=== PATIENT | female | born 1975 | race Caucasian/White ===

== ENCOUNTER 2020-02-01 00:46 | Emergency (ER) | payer OTHER ==
[~2020-02-01] VITALS: Ht 154.9 cm; Wt 63.5 kg
[2020-02-01 00:57] VITALS: BP 144/94
[2020-02-01] MEDS ORDERED: HYDROXYZINE HCL25 M2 PO (02:16)
[2020-02-01] MEDS ORDERED: AMOXICILLIN 50500 M1 PO (02:16)
[2020-02-01] MEDS ORDERED: MEDROLDOSEPACK PO (02:16)
--- NOTE | 2020-02-02 08:54 | EKG ---
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1975 Requested By: Nya Neville Order Number: [id number] MD: Harish Obando Measurements Intervals [place] Rate: 66 P: 128 MN: 158 QRS: -23 QRSD: 95 T: 140 QT: 415 QTc: 435 Interpretive Statements Sinus rhythm Probable left atrial enlargement Low voltage, extremity and precordial leads Abnormal T, consider ischemia, lateral leads No previous ECG available for comparison Electronically Signed On 02-02-2020 8:53:54 CDT by Harish Obando [email or web address] <ELECTRONICALLY SIGNED> By: Harish Obando MD, FACC 02/02/20 0853 0135 0135 Harish Obando MD, [facility] /EPI
== END 2020-02-01 02:22 | disposition home or self-care (01) ==
LOC: M.ERS 00:46
DX: F41.9 Anxiety disorder, unspecified (principal); R42 Dizziness and giddiness; F17.210 Nicotine dependence, cigarettes, uncomplicated; Z98.890 Other specified postprocedural states

== ENCOUNTER 2020-02-27 16:10 | Emergency (ER) | payer OTHER ==
[~2020-02-27] VITALS: Ht 154.9 cm; Wt 63.5 kg
[~2020-02-27 16:10] MED LIST: AMOXICILLIN 50500 M1 PO; HYDROXYZINE HCL25 M2 PO; MEDROLDOSEPACK PO
[2020-02-27] MEDS ORDERED: BUSPIRONE HCL7.5 MG PO (16:20)
[2020-02-27] MEDS ORDERED: SERTRALINE HCL50 MG PO (16:21)
[2020-02-27 17:16] LABS: ABSOLUTE EOSINOPHILS 0.2 thou/uL (0.0-0.7); ABSOLUTE LYMPHOCYTES 1.1 thou/uL (0.8-5.3); ABSOLUTE MONOCYTES 0.4 thou/uL (0.0-1.2); ABSOLUTE NEUTROPHILS 3.4 thou/uL (1.6-8.1); BASOPHILS 0.8 %; EOSINOPHILS 3.5 %; HEMATOCRIT 39.8 % (37.0-47.0); HEMOGLOBIN 13.6 gm/dL (12.0-15.0); LYMPHOCYTES 21.3 %; MCH 30.2 pg (26.0-34.0); MCHC 34.3 g/dL (28.0-37.0); MCV 88.2 fL (80.0-100.0); MONOCYTES 6.9 %; MPV 8.8 fl. (7.2-11.1); NUCLEATED RBCS 0 /100WBC; PLATELET COUNT* 264 thou/uL (150-400); POLYS 67.5 %; RBC 4.51 mil/uL (4.20-5.00); RDW-CV 13.4 % (10.5-14.5); WBC 5.1 thou/uL (4.0-11.0)
--- NOTE | 2020-02-27 17:17 | EKG ---
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[facility] : 1975 Requested By: Mario Feliz Order Number: [id number] MD: Quinn Vance Measurements Intervals [place] Rate: 97 P: 63 ID: 156 QRS: 30 QRSD: 77 T: 58 QT: 338 QTc: 430 Interpretive Statements Sinus rhythm Probable left atrial enlargement Compared to ECG 02/01/2020 01:35:04 T-wave abnormality no longer present Possible ischemia no longer present Electronically Signed On 02-27-2020 17:17:17 CDT by Quinn Vance [email or web address] <ELECTRONICALLY SIGNED> By: Quinn Vance MD, [facility] 02/27/20 1717 1617 16 Quinn Vance MD, [facility] /EPI
[2020-02-27 17:21] LABS: CALCIUM 9.2 mg/dL (8.5-10.1); CREATININE 0.8 mg/dL (0.6-1.3); POTASSIUM 4.1 mmol/L (3.5-5.1)
[2020-02-27 17:26] LABS: ALBUMIN 4.1 g/dL (3.4-5.0); TOTAL BILIRUBIN 0.2 mg/dL (<0.1-1.0); TOTAL PROTEIN 7.4 g/dL (6.4-8.2)
[2020-02-27] MEDS ORDERED: AUGMENTIN 500-1 EACH PO (18:39)
[2020-02-27] MEDS ORDERED: LORATIDINE 10 M10 M1 PO (18:39)
[2020-02-27 18:50] VITALS: BP 102/70
== END 2020-02-27 18:51 | disposition home or self-care (01) ==
LOC: M.ERS 16:10
PROVIDERS: Physician Assistant
DX: H92.01 Otalgia, right ear (principal); R00.2 Palpitations; Z98.890 Other specified postprocedural states

== ENCOUNTER 2020-03-02 14:05 | Emergency (ER) | payer OTHER ==
[~2020-03-02] VITALS: Ht 154.9 cm; Wt 63.5 kg
[~2020-03-02 14:05] MED LIST changes: +AUGMENTIN 500-1 EACH PO; +BUSPIRONE HCL7.5 MG PO; +LORATIDINE 10 M10 M1 PO; +SERTRALINE HCL50 MG PO
[2020-03-02 14:39] LABS: ABSOLUTE EOSINOPHILS 0.1 thou/uL (0.0-0.7); ABSOLUTE LYMPHOCYTES 1.3 thou/uL (0.8-5.3); ABSOLUTE MONOCYTES 0.4 thou/uL (0.0-1.2); ABSOLUTE NEUTROPHILS 2.5 thou/uL (1.6-8.1); BASOPHILS 0.9 %; EOSINOPHILS 1.9 %; HEMATOCRIT 39.2 % (37.0-47.0); HEMOGLOBIN 13.7 gm/dL (12.0-15.0); LYMPHOCYTES 29.7 %; MCH 30.6 pg (26.0-34.0); MCHC 34.9 g/dL (28.0-37.0); MCV 87.6 fL (80.0-100.0); MONOCYTES 8.5 %; MPV 8.8 fl. (7.2-11.1); NUCLEATED RBCS 0 /100WBC; PLATELET COUNT* 271 thou/uL (150-400); RBC 4.47 mil/uL (4.20-5.00); RDW-CV 13.3 % (10.5-14.5); WBC 4.3 thou/uL (4.0-11.0)
[2020-03-02 14:54] LABS: CALCIUM 9.2 mg/dL (8.5-10.1); CREATININE 0.8 mg/dL (0.6-1.3); POTASSIUM 3.7 mmol/L (3.5-5.1)
[2020-03-02 14:58] LABS: ALBUMIN 4.4 g/dL (3.4-5.0); TOTAL BILIRUBIN 0.4 mg/dL (<0.1-1.0); TOTAL PROTEIN 7.5 g/dL (6.4-8.2)
[2020-03-02 15:50] LABS: ESR (SEDRATE) 5 mm/hr (0-20)
[2020-03-02] MEDS ORDERED: FLEXERIL PO (18:08)
[2020-03-02 18:15] VITALS: BP 128/77
== END 2020-03-02 18:16 | disposition home or self-care (01) ==
LOC: M.ERS 14:05
PROVIDERS: Physician Assistant
DX: F41.9 Anxiety disorder, unspecified (principal); M62.838 Other muscle spasm; R13.10 Dysphagia, unspecified; Z98.890 Other specified postprocedural states

== ENCOUNTER 2021-05-16 12:34 | Emergency (ER) | payer OTHER ==
[~2021-05-16] VITALS: Ht 154.9 cm; Wt 65.8 kg
[~2021-05-16 12:34] MED LIST changes: +FLEXERIL PO
[2021-05-16] MEDS ORDERED: FLONASE 0.05%50 MCG NARES (12:54)
[2021-05-16 15:15] LABS: ABSOLUTE EOSINOPHILS 0.1 thou/uL (0.0-0.7); ABSOLUTE LYMPHOCYTES 1.3 thou/uL (0.8-5.3); ABSOLUTE MONOCYTES 0.3 thou/uL (0.0-1.2); ABSOLUTE NEUTROPHILS 3.3 thou/uL (1.6-8.1); BASOPHILS 0.5 %; EOSINOPHILS 2.1 %; HEMATOCRIT 38.6 % (37.0-47.0); HEMOGLOBIN 13.1 gm/dL (12.0-15.0); LYMPHOCYTES 25.8 %; MCH 28.9 pg (26.0-34.0); MCHC 33.9 g/dL (28.0-37.0); MCV 85.4 fL (80.0-100.0); MONOCYTES 5.9 %; MPV 9.1 fl. (7.2-11.1); NUCLEATED RBCS 0 /100WBC; PLATELET COUNT* 228 thou/uL (150-400); POLYS 65.7 %; RBC 4.52 mil/uL (4.20-5.00)
[2021-05-16 15:35] LABS: CREATININE 0.7 mg/dL (0.6-1.3); POTASSIUM 3.8 mmol/L (3.5-5.1)
[2021-05-16 15:39] LABS: ALBUMIN 4.7 g/dL (3.4-5.0); MAGNESIUM 2.1 mg/dL (1.8-2.4); TOTAL BILIRUBIN 0.4 mg/dL (<0.1-1.0); TOTAL PROTEIN 7.8 g/dL (6.4-8.2)
[2021-05-16 18:00] VITALS: BP 130/64
--- NOTE | 2021-05-17 14:32 | EKG ---
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1975 Requested By: Abram Knox Order Number: [id number] MD: Kyle Tilley Measurements Intervals [place] Rate: 61 P: 49 CT: 158 QRS: -17 QRSD: 113 T: 63 QT: 410 QTc: 413 Interpretive Statements Sinus rhythm Borderline intraventricular conduction delay Compared to ECG 02/27/2020 16:17:31 No significant changes Electronically Signed On 05-17-2021 14:32:11 CDT by Kyle Tilley [email or web address] <ELECTRONICALLY SIGNED> By: Kyle Tilley MD, [facility] 05/17/21 1432 1248 1248 Kyle Tilley MD, [facility] /EPI
--- NOTE | 2021-05-17 14:33 | EKG ---
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
== END 2021-05-16 18:00 | disposition home or self-care (01) ==
LOC: M.ERS 12:34
PROVIDERS: Emergency Medicine Emergency Medical Services
DX: R07.89 Other chest pain (principal); R06.02 Shortness of breath; R00.2 Palpitations; Z20.822 Contact with and (suspected) exposure to COVID-19; Z98.890 Other specified postprocedural states